=== PATIENT | male | born 1955 | race Native Hawaiian/Other Pacific Islander ===

== ENCOUNTER 2020-01-27 14:08 | Outpatient (CLI) | payer OTHER | END 2020-01-27 21:45 | disposition home or self-care (01) | LOC: RAD 14:08 | PROVIDERS: ATTEND Physician Assistant | DX: M25.511 Pain in right shoulder (principal) ==

== ENCOUNTER 2020-02-04 10:37 | Outpatient (CLI) | payer OTHER | END 2020-02-04 19:12 | disposition home or self-care (01) | LOC: MRI 10:37 | PROVIDERS: ATTEND Physician Assistant | DX: M25.511 Pain in right shoulder (principal) ==

== ENCOUNTER 2020-03-16 13:41 | Outpatient (CLI) | payer OTHER | END 2020-03-16 19:29 | disposition home or self-care (01) | LOC: RAD 13:41 | PROVIDERS: ATTEND Nurse Practitioner Family | DX: M25.511 Pain in right shoulder (principal) ==